=== PATIENT | female | born 1940 | race American Indian/Alaskan Native ===

== ENCOUNTER 2017-01-03 10:09 | Outpatient (CLI) | payer MEDICARE ==
--- NOTE | 2017-01-03 11:46 | XRay Report ---
Left leg 2 views: History: Leg pain. Findings: No fracture, periosteal reaction or lytic lesion. No soft tissue calcification. Impression: Essentially negative left tibia and fibula.
--- NOTE | 2017-01-03 14:12 | Mammography Report ---
BILATERAL DIGITAL SCREENING MAMMOGRAM with CAD: 01/03/17 10:09:00 CLINICAL: Routine screening. COMPARISON: 12/29/15 FINDINGS: There are bilateral scattered areas of fibroglandular density.No mass, architectural distortion or suspicious calcifications. IMPRESSION: No mammographic evidence of malignancy. BI-RADS CATEGORY: 1 -- Negative RECOMMENDATION: Routine mammographic screening in one year. COMMENT: Patient follow-up letters are generated by our [employer] application.
== END 2017-01-03 10:10 | disposition home or self-care (01) ==
LOC: SPVIMAG 10:09
DX: Z12.31 Encounter for screening mammogram for malignant neoplasm of breast (principal); M79.605 Pain in left leg
CPT/HCPCS: 73590; G0202; 77067

== ENCOUNTER 2017-02-22 10:28 | Outpatient (CLI) | payer MEDICARE ==
--- NOTE | 2017-02-22 11:55 | XRay Report ---
Right ankle 3 views. History: Pain. Findings: There is an old evulsion injury of the medial malleolus with no evidence of acute fracture. No significant soft tissue swelling is seen. Bone mineralization is normal. Impression: No acute findings.
--- NOTE | 2017-02-22 11:56 | XRay Report ---
Right foot 3 views. History: Foot pain. Findings: No fractures or other acute findings. A Small spur is seen arising from the posterior aspect of the calcaneus. Impression: No acute findings.
== END 2017-02-22 10:29 | disposition home or self-care (01) ==
LOC: SPVIMAG 10:28
DX: M77.31 Calcaneal spur, right foot (principal); S99.811D Other specified injuries of right ankle, subsequent encounter; X58.XXXD Exposure to other specified factors, subsequent encounter